=== PATIENT | female | born 1965 | race African-American/Black ===

== ENCOUNTER 2022-10-22 21:09 | Emergency (ER) | payer MEDICAID ==
[~2022-10-22] VITALS: Ht 167.6 cm; Wt 83.9 kg
[2022-10-22 21:33] VITALS: BP 127/63; PULSE 80; RESP 16; TEMP 97.4; O2SAT 100
== END 2022-10-23 02:26 | disposition home or self-care (01) ==
LOC: MED 21:09
DX: S27.818A Other injury of esophagus (thoracic part), initial encounter (principal); X58.XXXA Exposure to other specified factors, initial encounter; Y93.89 Activity, other specified; Y92.89 Other specified places as the place of occurrence of the external cause; Y99.8 Other external cause status
CPT/HCPCS: 70360; 70490; 99284